=== PATIENT | female | born 1965 | race Caucasian/White ===

== ENCOUNTER → 2021-01-12 14:51 | Outpatient (CLI) | payer OTHER, MEDICAID, SELFPAY ==
--- NOTE | 2021-01-12 14:56 | DI.CT.S_ITS ---
PROCEDURE: CT ABDOMEN PELVIS WO/W CON INDICATIONS: Calculus of kidney TECHNIQUE: Optional 5 mm thick noncontrast images acquired from the diaphragm to the symphysis pubis. After the administration of intravenous contrast, 5 mm thick images acquired from the diaphragm to the symphysis pubis after a 10-minute delay. 2 mm thick coronal and sagittal reformats were then performed of the kidneys and ureters. For radiation dose reduction, the following was used: automated exposure control, adjustment of mA and/or kV according to patient size. COMPARISON: [facility], CT, CT KUB, 11/29/2020, 18:18. FINDINGS: Image quality: Excellent. Lung bases: Lung bases are clear. Heart size is normal. Urinary system: Both kidneys are normal in size, without hydronephrosis. There is a nonobstructing right inferior pole renal calculus measuring 5 mm, as before. There is an adjacent punctate 1 mm calculus within the inferior pole right kidney. There is a 2 mm diameter calculus within the right interpolar/inferior pole kidney. No left nephrolithiasis. No perinephric fat stranding. Small bilateral renal cysts are present. There is otherwise normal bilateral renal enhancement. Renal calyces appear normal in morphology when filled with contrast. Opacified portions of both ureters demonstrate normal caliber. Bladder wall thickness is normal. No calcified bladder stones. Other solid organs: Liver is normal in size and enhancement. Gallbladder is surgically absent . Biliary system is non dilated. Pancreas enhances normally. Spleen is normal in size and enhancement. No adrenal nodules. Peritoneum and bowel: Moderate hiatal hernia. Bowel loops demonstrate normal wall thickness and caliber. No free fluid or air. Diverticulosis of the descending and sigmoid colon. Nodes and vessels: No retroperitoneal or mesenteric adenopathy by size criteria. Aorta and inferior vena cava are normal in size. Circumaortic left renal vein. Phlebolith adjacent to the right mid ureter, as before. Abdominal wall: No ventral hernias. Pelvis: No pathologic free pelvic fluid. No inguinal hernias or adenopathy. Bones: No suspicious bony lesions. No vertebral body compression fractures. IMPRESSION: 1. Nonobstructing right renal calculi. 2. No evidence of renal neoplasm. 3. Colonic diverticulosis with no evidence of acute diverticulitis. 4. Hiatal hernia. Dictated by: Meliza Austin M.D. on 01/12/2021 at 16:55 Approved by: Meliza Austin M.D. on 01/12/2021 at 16:58
== END ==
PROVIDERS: PCP Family Medicine; Referring Provider Urology; Visit Provider Urology
DX: N20.0 Calculus of kidney (principal); K57.30 Diverticulosis of large intestine without perforation or abscess without bleeding; K44.9 Diaphragmatic hernia without obstruction or gangrene; M54.5 Low back pain; G89.29 Other chronic pain
CPT/HCPCS: 74178; Q9967

== ENCOUNTER 2021-03-01 17:22 | Emergency (ER) | payer OTHER, MEDICAID, SELFPAY ==
[2021-03-01 17:28] VITALS: BP 118/75; PULSE 73; RESP 18; TEMP 37.1; O2SAT 99
--- NOTE | 2021-03-01 18:39 | ED.URI ---
HPI - URI/Sore Throat General Chief Complaint: Fever Stated Complaint: states is really sick Time Seen by Provider: 03/01/21 17:23 Source: patient Mode of arrival: Ambulatory History of Present Illness HPI Narrative: Patient is a 55-year-old female who presents with 3 days of nasal congestion cough and facial pain, no fever. She does have some cough but no shortness of breath or chest pain. She received her 2nd dose of the vaccine last week the day after she developed these symptoms that have persisted. Worried that it might be COVID. She has been taking lbzk-mep-manpurk medication she said it was helping 1st event no longer helping now. MD Complaint: nasal congestion Review of Systems Review of Systems ROS Unobtainable: All systems reviewed & are unremarkable except as noted in HPI and below Constitutional Constitutional: Denies fatigue, Denies fever(s) and Reports malaise Eyes Eyes: Denies change in vision, Denies eye discharge, Denies irritation and Denies loss of vision ENT Ears, Nose, Mouth, and Throat: Reports as per HPI and Denies vertigo Cardiovascular Cardiovascular: Denies chest pain, Denies irregular heart rhythm, Denies lightheadedness, Denies palpitations, Denies dyspnea, Denies dyspnea on exertion and Denies orthopnea Respiratory Respiratory: Denies cough, Denies dyspnea, Denies dyspnea on exertion and Denies wheezing Gastrointestinal Gastrointestinal: Denies abdominal pain, Denies change in bowel habits, Denies diarrhea, Denies nausea and Denies vomiting Musculoskeletal Musculoskeletal: Denies back pain and Denies myalgias Integumentary/Breasts Skin/Breast: Denies pruritus, Denies erythema, Denies rash and Denies wounds Neurologic Neurologic: Denies confusion, Denies vertigo and Denies loss of vision Psychiatric Psychiatric: Denies confusion Endocrine Endocrine: Denies fatigue and Denies palpitations Allergic/Immunologic Allergic/Immunologic: Denies wheezing Patient History Social History Smoking Status: Current every day smoker Smoking Status: Current every day smoker Exam Initial Vital Signs Initial Vital Signs: Vital Signs Temperature 98.8 F 03/01/21 17:28 Pulse Rate 73 03/01/21 17:28 Respiratory Rate 18 03/01/21 17:28 Blood Pressure 118/75 03/01/21 17:28 Pulse Oximetry 99 03/01/21 17:28 GENERAL: Well-appearing, well-nourished and in no acute distress. HEENT: Head atraumatic,EOMI, pupils reactive, face symmetric, moist mucous membranes, facial tenderness over maxillary sinuses EARS: Tympanic membranes visualized, no erythema or bulging, no hemotympanum PHARYNX: No erythema, no tonsillar exudate, no cervical lymphadenopathy CARDIOVASCULAR: Regular rate and rhythm without murmurs, rubs or gallops. RESPIRATORY: Breath sounds equal bilaterally, no wheezes rales or rhonchi. NEUROLOGICAL: Alert and oriented x4.Normal gait and speech. Cranial nerves II through XII grossly intact. SKIN: Warm, dry, no laceration, no petechiae, no rashes or lesions. Course Orders Ordered: ED Orders 03/01/21 18:40 COVID19 -Nasal swab/Pre-Proc Stat Vital Signs Vital signs: Vital Signs - 8 hr 03/01/21 18:59 Pulse Rate 70 Blood Pressure 102/72 Pulse Oximetry 99 MDM - URI/Sore Throat Lab Data Labs: Lab Results 03/01/21 Range/Units 18:40 SARS-CoV-2 (PCR) Negative (Negative) MDM Narrative Medical decision making narrative: Patient overall does not appear septic she appears to have upper respiratory infection probable sinusitis with the significant amount of pressure. However it has only been going on 3 days and is a afebrile at this time does not meet criteria for antibiotics. I have discussed this with her and she understands. #331 & 332: Antibiotic use with Sinusitis *if the second, third, or fourth prompt is selected, only then should the clinician see the sub-prompts addressing amoxicillin X The patient has sinusitis and antibiotics are not indicated/not prescribed at this time. [SATISFIES MIPS PERFORMANCE] [] The patient has sinusitis with symptom onset greater than 10 days ago and the patient was prescribed antibiotics. [SATISFIES MIPS PERFORMANCE] Discharge Plan Departure Patient Disposition: Home Clinical Impression: Upper respiratory infection Qualifiers: URI type: unspecified viral URI Qualified Code(s): J06.9 - Acute upper respiratory infection, unspecified Instructions: DI for Viral Upper Respiratory Infection -- Adult Activity Restrictions/Additional Instructions: *You have been diagnosed with sinus infection *What to do: At this time no antibiotics are indicated however if you have a fever more than 100.4 or symptoms are persisting more than 10 days he will likely require antibiotics. *Continue to take medications as directed Ibuprofen 600 mg every 6 hours if needed for ugeq-le-bjhlrqrl pain Tylenol 650 mg every 4-6 hours if needed for noui-xq-eibhrnwk pain do not exceed more than 4 g in 24 hours *Follow up with your primary care provider in 2-3 days *Return to ER if you should have increasing shortness of breath, difficulty breathing or the above symptoms or any new, worsening or concerning symptoms Referrals: Anton Yao MD [Primary Care Provider] -
[2021-03-01 18:59] VITALS: BP 102/72; PULSE 70; O2SAT 99
[2021-03-01 19:16] LABS: COVID19 -Nasal RAPID Negative (Negative)
== END 2021-03-01 19:34 | disposition home or self-care (01) ==
PROVIDERS: Emergency Provider Emergency Medicine; PCP Family Medicine
DX: J06.9 Acute upper respiratory infection, unspecified (principal); Z20.822 Contact with and (suspected) exposure to COVID-19
CPT/HCPCS: 87635; 99281; 99282; C9803

== ENCOUNTER 2021-08-01 11:56 | Emergency (ER) | payer OTHER, MEDICAID, SELFPAY ==
[2021-08-01 12:12] VITALS: BP 130/67; PULSE 95; RESP 16; TEMP 37.2; O2SAT 95; BMI 20.1
--- NOTE | 2021-08-01 12:16 | DI.RAD.S_ITS ---
PROCEDURE: XR CHEST 2V INDICATIONS: cough TECHNIQUE: 2 views of the chest were acquired. COMPARISON: [facility], CT, CT ABDOMEN PELVIS WO/W CON, 01/12/2021, 15:40. [facility], CT, CT KUB, 11/29/2020, 18:18. FINDINGS: Surgical changes and devices: Cervical spine fixation hardware is seen. Right breast clips are seen. Cholecystectomy clips are seen. Laparoscopic anchors can be seen involving the anterior abdominal wall on the lateral view. Lungs and pleura: Lungs are clear. No pleural effusions or pneumothorax. The lungs are hyperexpanded, with flattening of the hemidiaphragms seen. Mediastinum: The cardiac contours are within normal limits. The aorta demonstrates calcification and tortuosity. Bones and chest wall: No suspicious bony abnormalities. Age-appropriate bony degenerative changes are seen. Soft tissues appear unremarkable. IMPRESSION: Negative for infiltrate. Postoperative and degenerative changes are seen. Dictated by: Marquez Galvan M.D. on 08/01/2021 at 11:33 Approved by: Marquez Galvan M.D. on 08/01/2021 at 11:35
[2021-08-01 12:58] LABS: COVID19 -Nasal RAPID Negative (Negative)
--- NOTE | 2021-08-01 14:19 | ED_ITS ---
HPI - URI/Sore Throat <Mor Lynn PA-C - Last Filed: 08/01/21 14:25> General Chief Complaint: Upper Respiratory Symptoms Stated Complaint: very sick, coughing, excruciating weakness+pain Time Seen by Provider: 08/01/21 14:01 Source: patient Mode of arrival: Ambulatory Limitations: no limitations History of Present Illness HPI Narrative: 55-year-old female with past medical history sciatica, neck pain, brain mass presents to the ED with a days of cough. Patient states that her symptoms started 8 days ago with a lot of sneezing, followed by cough, body aches. Patient came into the ED today due to persistent cough and worsening of body aches today, and to be tested for COVID-19. Patient has tried several jcni-aym-hzakjzh cough medications with little relief. Patient denies fever, chills, chest pain, shortness of breath, wheezing, nausea, vomiting, abdominal pain, dysuria, lightheadedness, dizziness, syncope. Patient is vaccinated for COVID-19. Related Data Previous Rx's Medication Instructions Recorded benzonatate 100 mg capsule 100 mg PO BID-TID PRN 10 Days #30 08/01/21 (Tesclaudine Velazquez) cap Allergies Allergy/AdvReac Type Severity Reaction Status Date / Time No Known Drug Allergies Allergy Verified 08/01/21 12:12 Review of Systems <Mor Lynn PA-C - Last Filed: 08/01/21 14:25> Constitutional Constitutional: Reports body ache(s), Denies chills, Denies fatigue, Denies fever(s), Denies frequent falls, Denies lethargy and Denies weakness Eyes Eyes: Denies change in vision, Denies eye discharge, Denies irritation and Denies loss of vision ENT Ears, Nose, Mouth, and Throat: Denies change in voice, Denies dizziness, Denies neck pain, Denies sore throat and Denies throat swelling Cardiovascular Cardiovascular: Denies chest pain, Denies irregular heart rhythm, Denies lightheadedness, Denies palpitations, Denies dyspnea, Denies dyspnea on exertion and Denies orthopnea Respiratory Respiratory: Reports cough, Denies dyspnea, Denies dyspnea on exertion and D enies wheezing Gastrointestinal Gastrointestinal: Denies abdominal pain, Denies change in bowel habits, Denies diarrhea, Denies nausea and Denies vomiting Musculoskeletal Musculoskeletal: Denies neck pain and Denies numbness Integumentary/Breasts Skin/Breast: Denies pruritus, Denies erythema, Denies rash and Denies wounds Neurologic Neurologic: Denies behavioral changes, Denies confusion, Denies dizziness, Denies frequent falls, Denies loss of vision, Denies numbness and Denies weakness Psychiatric Psychiatric: Denies anxiety, Denies behavioral changes, Denies confusion, Denies depression, Denies homicidal ideation and Denies suicidal ideation Endocrine Endocrine: Denies fatigue, Denies flushing and Denies palpitations Hematologic/Lymphatic Hematologic/Lymphatic: Denies easy bruising Allergic/Immunologic Allergic/Immunologic: Denies urticaria, Denies throat swelling and Denies wheezing Patient History <Mor Lynn PA-C - Last Filed: 08/01/21 14:25> Social History Smoking Status: Current every day smoker Smoking Status: Current every day smoker alcohol intake frequency: holidays/special occasions only Substance Use Type: does not use Exam <Mor Lynn PA-C - Last Filed: 08/01/21 14:25> Initial Vital Signs Initial Vital Signs: Vital Signs Temperature 98.9 F 08/01/21 12:12 Pulse Rate 95 H 08/01/21 12:12 Respiratory Rate 16 08/01/21 12:12 Blood Pressure 130/67 08/01/21 12:12 Pulse Oximetry 95 08/01/21 12:12 Const General: cooperative HENMA Head: normocephalic and atraumatic Ears: external ears normal and TM's normal bilaterally Nose: external nose normal and No nasal discharge Face and sinus: sinuses nontender, face symmetric, no sinus tenderness and No dry mucous membranes Mouth: oral mucosae normal and moist mucous membranes Teeth and gingiva: dentition normal Throat: tonsils normal and uvula midline Eyes General: appearance normal, both eyes and all related structures Eyelids: eyelids normal Conjunctivae: conjunctivae normal Sclera: sclerae normal Pupils: PERRL EOM: EOM intact bilaterally Neck Neck: normal visual inspection, trachea midline, No lymphadenopathy, No midline deformity and No JVD Lymphatic: No lymphedema Chest Chest: normal inspection of the chest Resp Effort & Inspection: normal respiratory effort, able to speak in complete sentences, cough, no respiratory distress and no use of accessory muscles Auscultation: clear to auscultation bilaterally, no rales, no rhonchi and no wheezes Cardio Rate: regular rate Rhythm: regular rhythm Heart Sounds: no click, no gallops, no murmurs and no rubs Pulses: normal peripheral pulses GI Inspection: non-distended Palpation: soft, no hepatosplenomegaly, No guarding, No pulsatile mass and No tender Auscultation: normal bowel sounds Back/Spine/Pelvis Back: No CVA tenderness Cervical Spine: cervical ROM normal and No pain with cervical ROM Thoracic/Lumbar Spine: thoracic and lumbar spine normal to inspection Skin General: no rashes or lesions noted, No jaundice and No petechiae Neuro General: patient alert, patient oriented x3, gait normal and no focal motor deficits Speech: speech normal Extrem General: full ROM, no clubbing, cyanosis or edema, no pedal edema and no calf tenderness Psych Appearance: well kempt Mental Status: mental status grossly normal Attitude: cooperative Thought Content: normal and suicidality Judgment: judgment good <Tani Parham DO - Last Filed: 08/02/21 06:58> Initial Vital Signs Initial Vital Signs: Vital Signs Temperature 98.9 F 08/01/21 12:12 Pulse Rate 95 H 08/01/21 12:12 Respiratory Rate 16 08/01/21 12:12 Blood Pressure 130/67 08/01/21 12:12 Pulse Oximetry 95 08/01/21 12:12 Course <Mor Lynn PA-C - Last Filed: 08/01/21 14:25> Orders Ordered: Discontinued Medications Benzonatate (Benzonatate 100 Mg Capsule) 100 mg PO NOW ONE Stop: 08/01/21 14:15 Last Admin: 08/01/21 14:21 Dose: 100 mg Documented by: VENESSA Ketorolac Tromethamine (Ketorolac 30 Mg/Ml Vial) 15 mg IM NOW ONE Stop: 08/01/21 14:15 Last Admin: 08/01/21 14:21 Dose: 15 mg Documented by: VENESSA Vital Signs Vital signs: Vital Signs - 8 hr 08/01/21 12:12 Temperature 98.9 F Pulse Rate 95 H Respiratory Rate 16 Blood Pressure 130/67 Pulse Oximetry 95 <Tani Parham DO - Last Filed: 08/02/21 06:58> Orders Ordered: Discontinued Medications Benzonatate (Benzonatate 100 Mg Capsule) 100 mg PO NOW ONE Stop: 08/01/21 14:15 Last Admin: 08/01/21 14:21 Dose: 100 mg Documented by: VENESSA Ketorolac Tromethamine (Ketorolac 30 Mg/Ml Vial) 15 mg IM NOW ONE Stop: 08/01/21 14:15 Last Admin: 08/01/21 14:21 Dose: 15 mg Documented by: VENESSA Vital Signs Vital signs: Vital Signs - 8 hr 08/01/21 12:12 Temperature 98.9 F Pulse Rate 95 H Respiratory Rate 16 Blood Pressure 130/67 Pulse Oximetry 95 MDM - URI/Sore Throat <Mor Lynn PA-C - Last Filed: 08/01/21 14:25> Medical Records Attestation: I reviewed the patient's medical records. Lab Data Attestation: I reviewed the patient's lab results. Lab results narrative: COVID-19 negative Labs: Lab Results 08/01/21 Range/Units 12:14 SARS-CoV-2 (PCR) Negative (Negative) Imaging Data Chest x-ray: Radiologist's Impression: PROCEDURE:? XR CHEST 2V ? INDICATIONS:? cough ? TECHNIQUE:? 2 views of the chest were acquired.? ? COMPARISON:? [facility], CT, CT ABDOMEN PELVIS WO/W CON, 01/12/2021, 15:40.? [facility], CT, CT KUB, 11/29/2020, 18:18. ? FINDINGS:? ? Surgical changes and devices:? Cervical spine fixation hardware is seen.? Right breast clips are seen. Cholecystectomy clips are seen.? Laparoscopic anchors can be seen involving the anterior abdominal wall on the lateral view. ? Lungs and pleura:? Lungs are clear.? No pleural effusions or pneumothorax.? The lungs are hyperexpanded, with flattening of the hemidiaphragms seen. ? Mediastinum:? The cardiac contours are within normal limits. The aorta demonstrates calcification and tortuosity. ? Bones and chest wall:? No suspicious bony abnormalities.? Age-appropriate bony degenerative changes are seen. ? Soft tissues appear unremarkable.? ? ? IMPRESSION:? Negative for infiltrate. ? Postoperative and degenerative changes are seen.? ? ? Dictated by: Marquez Galvan M.D. on 08/01/2021 at 11:33 ? ? MDM Narrative Medical decision making narrative: 55-year-old female with past medical history sciatica, neck pain, brain mass presents to the ED with a days of cough. Concern for URI versus bronchitis. Chest x-ray with no acute findings, COVID 19 test negative. Will discharge home with prescription for Tessalon Perles. Will give a dose of Tessalon Perles, Toradol in the ED. will discuss ED return precautions. <Tani Parham DO - Last Filed: 08/02/21 06:58> Lab Data Labs: Lab Results 08/01/21 Range/Units 12:14 SARS-CoV-2 (PCR) Negative (Negative) Discharge Plan Departure Patient Disposition: Home Clinical Impression: Upper respiratory infection Qualifiers: URI type: unspecified URI Qualified Code(s): J06.9 - Acute upper respiratory infection, unspecified Instructions: DI for Viral Upper Respiratory Infection -- Adult Activity Restrictions/Additional Instructions: You were evaluated today for a cough and body aches. Your chest x-ray was normal annual COVID test was negative. You likely have bronchitis secondary to a viral upper respiratory infection. May take Tessalon Perles for the cough, and ibuprofen or Tylenol for the body aches. Prescriptions: New benzonatate [Tessalon Perles] 100 mg capsule 100 mg PO BID-TID PRN (Reason: cough) 10 Days Qty: 30 RF: 0 Referrals: Anton Yao MD [Primary Care Provider] -
[2021-08-01] MEDS: KETOROLAC 30 MG/ML VIAL 15 MG IM (14:21)
[2021-08-01] MEDS: BENZONATATE 100 MG CAPSULE PO (14:21)
[2021-08-01 14:38] VITALS: BP 119/69; PULSE 84; RESP 16; O2SAT 96
== END 2021-08-01 14:38 | disposition home or self-care (01) ==
PROVIDERS: Emergency Medicine; Emergency Provider Student in an Organized Health Care Education/Training Program; PCP Family Medicine
DX: J06.9 Acute upper respiratory infection, unspecified (principal); Z20.822 Contact with and (suspected) exposure to COVID-19
CPT/HCPCS: 71046; 87635; 96372; 99283; C9803; J1885

== ENCOUNTER 2023-05-19 17:03 | Emergency (ER) | payer OTHER, MEDICAID, SELFPAY ==
[2023-05-19] VITALS (30 sets, daily range): BP systolic 97–118; BP diastolic 59–77; PULSE 75–93; RESP 18–27; TEMP 36.4; O2SAT 91–97; BMI 20.9
--- NOTE | 2023-05-19 17:28 | DI.RAD.S_ITS ---
PROCEDURE: XR CHEST 1V INDICATIONS: chest pain TECHNIQUE: One view of the chest was acquired. COMPARISON: [facility], , XR CHEST 2V, 08/01/2021, 12:18. FINDINGS: Surgical changes and devices: Partially imaged surgical hardware from prior ACDF. Surgical clips project over the right lower chest. Lungs and pleura: Lungs are clear. No pleural effusions or pneumothorax. Mediastinum: Mediastinal contours appear normal. Heart size is normal. Bones and chest wall: No suspicious bony lesions. Overlying soft tissues appear unremarkable. IMPRESSION: No acute cardiopulmonary abnormalities or focal airspace disease. Dictated by: Koby Scott M.D. on 05/19/2023 at 16:55 Approved by: Koby Scott M.D. on 05/19/2023 at 16:56
[2023-05-19 18:04] LABS: Add Manual Diff / Slide Review NO; Basophils Absolute Auto 100 /uL (0-100); Basophils Percent Auto 0.9 % (0-2); Eosinophils Absolute Auto 100 /uL (0-450); Eosinophils Percent Auto 1.4 % (2-4); Hematocrit 34.6 % (36-46); Hemoglobin 12.1 g/dL (12.0-16.0); Lymphocytes Absolute Auto 1600 /uL (1100-4500); Lymphocytes Percent Auto 23.3 % (25-40); Mean Corpuscular Hemoglobin 32.5 PG (26-34); Mean Corpuscular Volume 92.7 fL (80-100); Monocytes Absolute Auto 400 /uL (0-900); Monocytes Percent Auto 6.2 % (3-14); Neutrophils Absolute Auto 4700 /uL (1500-7000); Neutrophils Percent Auto 68.2 % (50-75); Platelet Count 222 X10^3/uL (150-400); Red Blood Cell Count 3.74 X10^6/uL (4.0-5.2); Red Cell Distribution Width 13.8 % (11.6-14.8); White Blood Cell Count 6.9 X10^3/uL (4.5-11.0)
[2023-05-19 18:16] LABS: Prothrombin Time 11.4 SECONDS (10.1-12.7)
[2023-05-19 18:19] LABS: PTT Partial Thromboplastin Tim 30 SECONDS (26-36)
--- NOTE | 2023-05-19 18:20 | ED_ITS ---
HPI - General Adult General Chief complaint: Weakness Stated complaint: Cough Time Seen by Provider: 05/19/23 18:16 Source: patient Mode of arrival: Ambulatory History of Present Illness HPI narrative: 57-year-old woman complaining of being ?sick? for a number of weeks in the last 2 days has gotten significantly worse. She notes increasing cough, she does continue to smoke. Reports weakness, falls, unable to sleep due to a turning type sensation throughout her whole body that bothers her all night long. This sensation does not seem to be present during the day so she is able to get small naps during the day but does complain of significant sleep deprivation.. Also note intermittent diarrhea over the last number of weeks. She is concerned that she may have Clostridium difficile and has been started on antibiotics (she isn't sure which ones) by her primary care doctor and took the 1st dose is today. She has not yet left a stool sample for diagnostic purposes. She complains that she has restless legs and when getting up to walk to the bathroom feels that her legs are going to give out on her. Related Data Previous Rx's Medication Instructions Recorded prednisone 20 mg tablet 40 mg PO DAILY #10 tabs 05/20/23 Allergies Allergy/AdvReac Type Severity Reaction Status Date / Time No Known Drug Allergies Allergy Verified 05/19/23 17:22 Review of Systems Review of Systems Narrative: Pertinent positive and negative findings as per HPI Patient History Social History Smoking Status: Current every day smoker Smoking Status: Current every day smoker alcohol intake frequency: holidays/special occasions only Substance Use Type: does not use Exam Initial Vital Signs Initial Vital Signs: Vital Signs Temperature 97.6 F 05/19/23 17:22 Pulse Rate 89 05/19/23 17:22 Respiratory Rate 19 05/19/23 17:22 Blood Pressure 102/64 05/19/23 17:22 Pulse Oximetry 97 05/19/23 17:22 Oxygen Delivery Method Room Air 05/19/23 17:22 General: Chronically ill-appearing, significant sleep deprivation HEENT: Moist mucous membranes, normal sclera with reactive pupils, Neck: No JVD, supple Respiratory: Lungs with wheeze in all lung rodriguez worse in the upper lobes no rhonchi appreciated Cardiac: Regular rate and rhythm no murmurs no bruits Abdomen: Soft, nontender, good bowel tones, no flank pain Skin: Warm and dry, no rashes Neurologic: Globally weak, Grossly neurologically intact with no obvious asymmetries or abnormalities Extremities: No trauma, well perfused Psych: Cooperative, appropriate insight and affect Course Orders Ordered: ED Orders 05/19/23 17:28 XR chest 1V Stat EKG-12 Lead Stat 05/19/23 17:30 Covid-19 + FLU A/B + RSV - PCR Stat 05/19/23 17:50 BNP [NT-proBNP (BNP-Adult 18+)] Stat Complete Blood Count AUTO DIFF Stat Comprehensive Metabolic Panel Stat Lipase Stat Magnesium Stat PTT Partial Thromboplastin James Stat Prothrombin Time INR Stat Troponin & CK Cardiac Panel Stat 05/19/23 19:19 Respiratory Panel (Film Array) Stat UA Complete [Urinalysis and Microscopic] Stat Discontinued Medications Albuterol/Ipratropium (Albuterol/Ipratropium 3 Ml Ampul) 3 ml INH NOW ONE Stop: 05/19/23 23:33 Last Admin: 05/19/23 23:36 Dose: 3 ml Documented By: ROB Methylprednisolone (Methylprednisolone 125 Mg/2 Ml Vial) 125 mg IV NOW ONE Stop: 05/19/23 23:33 Last Admin: 05/19/23 23:39 Dose: 125 mg Documented By: Vital Signs Vital signs: Vital Signs - 8 hr 05/19/23 17:22 05/19/23 17:32 05/19/23 17:34 Temperature 97.6 F Pulse Rate 89 93 H 92 H Respiratory Rate 19 Blood Pressure 102/64 Pulse Oximetry 97 97 97 Oxygen Delivery Method Room Air Oxygen Flow Rate Fraction of Inspired Oxygen 05/19/23 17:34 05/19/23 17:40 05/19/23 17:40 Temperature Pulse Rate 90 Respiratory Rate 21 Blood Pressure 118/66 113/69 Pulse Oximetry 96 Oxygen Delivery Method Oxygen Flow Rate Fraction of Inspired Oxygen 05/19/23 17:53 05/19/23 17:53 05/19/23 18:00 Temperature Pulse Rate 82 92 H Respiratory Rate 26 H Blood Pressure 100/59 L Pulse Oximetry 96 96 Oxygen Delivery Method Oxygen Flow Rate Fraction of Inspired Oxygen 05/19/23 18:02 05/19/23 18:02 05/19/23 18:10 Temperature Pulse Rate 83 88 Respiratory Rate 22 Blood Pressure 107/70 Pulse Oximetry 96 97 Oxygen Delivery Method Oxygen Flow Rate Fraction of Inspired Oxygen 05/19/23 18:10 05/19/23 18:20 05/19/23 18:20 Temperature Pulse Rate 83 Respiratory Rate 27 H Blood Pressure 117/59 L 116/67 Pulse Oximetry 95 Oxygen Delivery Method Oxygen Flow Rate Fraction of Inspired Oxygen 05/19/23 18:35 05/19/23 19:00 05/19/23 19:30 Temperature Pulse Rate 80 77 80 Respiratory Rate 19 20 Blood Pressure Pulse Oximetry 91 Oxygen Delivery Method Oxygen Flow Rate Fraction of Inspired Oxygen 05/19/23 20:00 05/19/23 20:30 05/19/23 23:36 Temperature Pulse Rate 79 78 77 Respiratory Rate 21 21 18 Blood Pressure Pulse Oximetry 91 96 95 Oxygen Delivery Method Room Air Oxygen Flow Rate 0 Fraction of Inspired Oxygen 21 Medical Decision Making Lab Data 05/19/23 17:50 05/19/23 17:50 Labs: Lab Results 05/19/23 05/19/23 05/19/23 Range/Units 17:30 17:50 17:50 WBC 6.9 (4.5-11.0) X10^3/uL RBC 3.74 L (4.0-5.2) X10^6/uL Hgb 12.1 (12.0-16.0) g/dL Hct 34.6 L (36-46) % MCV 92.7 (80-100) fL MCH 32.5 (26-34) PG MCHC 35.0 (30-36) % RDW 13.8 (11.6-14.8) % Plt Count 222 (150-400) X10^3/uL Neut % (Auto) 68.2 (50-75) % Lymph % (Auto) 23.3 L (25-40) % [place] % (Auto) 6.2 (3-14) % Eos % (Auto) 1.4 L (2-4) % Baso % (Auto) 0.9 (0-2) % Neut # (Auto) 4700 (2667-3042) /uL Lymph # (Auto) 1600 (2108-6874) /uL [place] # (Auto) 400 (0-900) /uL Eos # (Auto) 100 (0-450) /uL Baso # (Auto) 100 (0-100) /uL PT 11.4 (10.1-12.7) SECONDS INR 1.0 (0.9-1.3) APTT 30 (26-36) SECONDS Sodium (137-145) mmol/L Potassium (3.4-5.1) mmol/L Chloride (98-107) mmol/L Carbon Dioxide (22-32) mmol/L BUN (7-17) mg/dL Creatinine (0.52-1.04) mg/dL Estimated GFR (>60) mL/min BUN/Creatinine Ratio (6-22) Glucose (70-100) mg/dL Calcium (8.4-10.2) mg/dL Magnesium (1.6-2.3) mg/dL Total Bilirubin (0.2-1.3) mg/dL AST (14-36) IU/L ALT (<35) IU/L Alkaline Phosphatase (38-126) U/L Total Creatine Kinase (30-135) U/L Troponin I (0.01-0.034) ng/mL NT-Pro-B Natriuret Pep (<125) pg/mL Total Protein (6.3-8.2) g/dL Albumin (3.5-5.0) g/dL Globulin (1.7-4.1) g/dL Albumin/Globulin Ratio (1.0-2.8) Lipase (23-300) U/L Urine Color Urine Appearance Urine pH (4.5-8.0) Ur Specific [place] (1.000-1.035) Urine Protein (Negative) Urine Glucose (UA) (Negative) g/dL Urine Ketones (NEGATIVE) Urine Occult Blood (Negative) Urine Nitrate (Negative) Urine Bilirubin (NEGATIVE) Urine Urobilinogen (0.2) E.U./dL Ur Leukocyte Esterase (NEGATIVE) Urine RBC (0-5/HPF) Urine WBC (0-5/HPF) Ur Squamous Epith Cells (0-5/HPF) Urine Bacteria (None) Ur Culture Indicated? Chlamy pneumoniae PCR (Not Detect) Adenovirus (PCR) (Not Detect) B. pertussis DNA (PCR) (Not Detecte) B.parapertussis DNA PCR (Not Detecte) Coronavirus OC43 (PCR) (Not Detect) Coronavirus HKU1 (PCR) (Not Detect) Coronavirus 229E (PCR) (Not Detect) SARS-CoV-2 (PCR) Negative (Negative) Coronavirus NL63 (PCR) (Not Detect) Human Metapneumovir PCR (Not Detect) Influenza A (RT-PCR) Flu a negative (NEGATIVE) Influenza Type A (PCR) (Not Detect) Influenza B (RT-PCR) Flu b negative (NEGATIVE) Influenza Type B (PCR) (Not Detect) M. pneumoniae (PCR) (Not Detect) Parainfluenza 1 (PCR) (Not Detect) Parainfluenza 2 (PCR) (Not Detect) Parainfluenza 3 (PCR) (Not Detect) Parainfluenza 4 (PCR) (Not Detect) RSV (PCR) Negative (Negative) Entero/Rhino (PCR) (Not Detect) 05/19/23 05/19/23 05/19/23 Range/Units 17:50 17:50 19:19 WBC (4.5-11.0) X10^3/uL RBC (4.0-5.2) X10^6/uL Hgb (12.0-16.0) g/dL Hct (36-46) % MCV (80-100) fL MCH (26-34) PG MCHC (30-36) % RDW (11.6-14.8) % Plt Count (150-400) X10^3/uL Neut % (Auto) (50-75) % Lymph % (Auto) (25-40) % [place] % (Auto) (3-14) % Eos % (Auto) (2-4) % Baso % (Auto) (0-2) % Neut # (Auto) (6878-0864) /uL Lymph # (Auto) (2257-6008) /uL [place] # (Auto) (0-900) /uL Eos # (Auto) (0-450) /uL Baso # (Auto) (0-100) /uL PT (10.1-12.7) SECONDS INR (0.9-1.3) APTT (26-36) SECONDS Sodium 131 L (137-145) mmol/L Potassium 3.4 (3.4-5.1) mmol/L Chloride 97 L (98-107) mmol/L Carbon Dioxide 27 (22-32) mmol/L BUN 3 L (7-17) mg/dL Creatinine 0.56 (0.52-1.04) mg/dL Estimated GFR > 60 (>60) mL/min BUN/Creatinine Ratio 5.4 L (6-22) Glucose 137 H (70-100) mg/dL Calcium 8.5 (8.4-10.2) mg/dL Magnesium 1.7 (1.6-2.3) mg/dL Total Bilirubin 0.4 (0.2-1.3) mg/dL AST 23 (14-36) IU/L ALT 23 (<35) IU/L Alkaline Phosphatase 72 (38-126) U/L Total Creatine Kinase 110 (30-135) U/L Troponin I < 0.012 (0.01-0.034) ng/mL NT-Pro-B Natriuret Pep 59 (<125) pg/mL Total Protein 6.7 (6.3-8.2) g/dL Albumin 4.0 (3.5-5.0) g/dL Globulin 2.7 (1.7-4.1) g/dL Albumin/Globulin Ratio 1.5 (1.0-2.8) Lipase 157 (23-300) U/L Urine Color Urine Appearance Urine pH (4.5-8.0) Ur Specific [place] (1.000-1.035) Urine Protein (Negative) Urine Glucose (UA) (Negative) g/dL Urine Ketones (NEGATIVE) Urine Occult Blood (Negative) Urine Nitrate (Negative) Urine Bilirubin (NEGATIVE) Urine Urobilinogen (0.2) E.U./dL Ur Leukocyte Esterase (NEGATIVE) Urine RBC (0-5/HPF) Urine WBC (0-5/HPF) Ur Squamous Epith Cells (0-5/HPF) Urine Bacteria (None) Ur Culture Indicated? Chlamy pneumoniae PCR Not detected (Not Detect) Adenovirus (PCR) Not detected (Not Detect) B. pertussis DNA (PCR) Not detected (Not Detecte) B.parapertussis DNA PCR Not detected (Not Detecte) Coronavirus OC43 (PCR) Not detected (Not Detect) Coronavirus HKU1 (PCR) Not detected (Not Detect) Coronavirus 229E (PCR) Not detected (Not Detect) SARS-CoV-2 (PCR) Not detected (Negative) Coronavirus NL63 (PCR) Not detected (Not Detect) Human Metapneumovir PCR Not detected (Not Detect) Influenza A (RT-PCR) (NEGATIVE) Influenza Type A (PCR) Not detected (Not Detect) Influenza B (RT-PCR) (NEGATIVE) Influenza Type B (PCR) Not detected (Not Detect) M. pneumoniae (PCR) Not detected (Not Detect) Parainfluenza 1 (PCR) Not detected (Not Detect) Parainfluenza 2 (PCR) Detected H (Not Detect) Parainfluenza 3 (PCR) Not detected (Not Detect) Parainfluenza 4 (PCR) Not detected (Not Detect) RSV (PCR) Not detected (Negative) Entero/Rhino (PCR) Not detected (Not Detect) 05/19/23 Range/Units 19:19 WBC (4.5-11.0) X10^3/uL RBC (4.0-5.2) X10^6/uL Hgb (12.0-16.0) g/dL Hct (36-46) % MCV (80-100) fL MCH (26-34) PG MCHC (30-36) % RDW (11.6-14.8) % Plt Count (150-400) X10^3/uL Neut % (Auto) (50-75) % Lymph % (Auto) (25-40) % [place] % (Auto) (3-14) % Eos % (Auto) (2-4) % Baso % (Auto) (0-2) % Neut # (Auto) (1501-8523) /uL Lymph # (Auto) (7919-9217) /uL [place] # (Auto) (0-900) /uL Eos # (Auto) (0-450) /uL Baso # (Auto) (0-100) /uL PT (10.1-12.7) SECONDS INR (0.9-1.3) APTT (26-36) SECONDS Sodium (137-145) mmol/L Potassium (3.4-5.1) mmol/L Chloride (98-107) mmol/L Carbon Dioxide (22-32) mmol/L BUN (7-17) mg/dL Creatinine (0.52-1.04) mg/dL Estimated GFR (>60) mL/min BUN/Creatinine Ratio (6-22) Glucose (70-100) mg/dL Calcium (8.4-10.2) mg/dL Magnesium (1.6-2.3) mg/dL Total Bilirubin (0.2-1.3) mg/dL AST (14-36) IU/L ALT (<35) IU/L Alkaline Phosphatase (38-126) U/L Total Creatine Kinase (30-135) U/L Troponin I (0.01-0.034) ng/mL NT-Pro-B Natriuret Pep (<125) pg/mL Total Protein (6.3-8.2) g/dL Albumin (3.5-5.0) g/dL Globulin (1.7-4.1) g/dL Albumin/Globulin Ratio (1.0-2.8) Lipase (23-300) U/L Urine Color Yellow Urine Appearance Clear Urine pH 6.0 (4.5-8.0) Ur Specific [place] <=1.005 (1.000-1.035) Urine Protein Negative (Negative) Urine Glucose (UA) Negative (Negative) g/dL Urine Ketones Negative (NEGATIVE) Urine Occult Blood Trace-intact (Negative) Urine Nitrate Negative (Negative) Urine Bilirubin Negative (NEGATIVE) Urine Urobilinogen 0.2 (0.2) E.U./dL Ur Leukocyte Esterase Negative (NEGATIVE) Urine RBC None seen (0-5/HPF) Urine WBC None seen (0-5/HPF) Ur Squamous Epith Cells None seen (0-5/HPF) Urine Bacteria None seen (None) Ur Culture Indicated? Cult not indicated Chlamy pneumoniae PCR (Not Detect) Adenovirus (PCR) (Not Detect) B. pertussis DNA (PCR) (Not Detecte) B.parapertussis DNA PCR (Not Detecte) Coronavirus OC43 (PCR) (Not Detect) Coronavirus HKU1 (PCR) (Not Detect) Coronavirus 229E (PCR) (Not Detect) SARS-CoV-2 (PCR) (Negative) Coronavirus NL63 (PCR) (Not Detect) Human Metapneumovir PCR (Not Detect) Influenza A (RT-PCR) (NEGATIVE) Influenza Type A (PCR) (Not Detect) Influenza B (RT-PCR) (NEGATIVE) Influenza Type B (PCR) (Not Detect) M. pneumoniae (PCR) (Not Detect) Parainfluenza 1 (PCR) (Not Detect) Parainfluenza 2 (PCR) (Not Detect) Parainfluenza 3 (PCR) (Not Detect) Parainfluenza 4 (PCR) (Not Detect) RSV (PCR) (Negative) Entero/Rhino (PCR) (Not Detect) Urine Dip Bedside Urine Glucose Negative Bedside Urine Bilirubin - Negative Bedside Urine Ketone - Negative Urine Specific [place] 1.01 Bedside Urine Occult Blood + Bedside Urine pH 6.0 Bedside Urine Protein - Negative Bedside Urine Urobilinogen - Negative Bedside Urine Nitrite - Negative Bedside Urine Leukocytes - Negative Esterase Point of care testing: Urine Dip Bedside Urine Glucose Negative Bedside Urine Bilirubin - Negative Bedside Urine Ketone - Negative Urine Specific [place] 1.01 Bedside Urine Occult Blood + Bedside Urine pH 6.0 Bedside Urine Protein - Negative Bedside Urine Urobilinogen - Negative Bedside Urine Nitrite - Negative Bedside Urine Leukocytes - Negative Esterase MDM Narrative Medical decision making narrative: CC: Cough and weakness, acute issue uncertain prognosis Complicating co-morbidities: Continued tobacco use, significant sleep deprivation Data collected from: patient, Medical records reviewed: Prior ER notes are noted. Differential considered: Severe sleep deprivation, viral syndrome, bacterial pneumonia, COPD exacerbation, congestive heart failure Exam documented above, pertinent findings include: Dramatic fatigue, wheezing in upper lung rodriguez no rhonchi Lab Test results independently reviewed as above. Pertinent findings: CBC is unremarkable Chemistries are minimally abnormal Troponin is unremarkable Urine shows no evidence of infection Respiratory panel demonstrates parainfluenza 2 Independently reviewed EKG sinus rhythm at a rate of 90. Normal intervals, normal axis. Nonspecific ST T wave changes anteriorly. No acute ischemia Imaging studies independently reviewed: No acute cardiopulmonary abnormality and no focal airspace disease Consultations: Treatments: DuoNeb, IV steroids Re-evaluations: 1230am lungs are slightly better after the Solu-Medrol and DuoNeb. She is not coughing quite as much. She notes that her restless legs are tremendously troublesome and she is standing at the bedside to help alleviate those symptoms currently. Discussion: 57-year-old woman testing positive for parainfluenza to with viral symptoms appreciated. She also has a long history of smoking likely does have COPD and has quite a bit of wheezing associated with a parainfluenza. We also spent time discussing her restless leg symptoms in the past she is had success with very small doses of carbidopa levodopa. She has tried multiple medications in the seem to be the most helpful. I am wondering if restless leg type symptoms are part of what is causing the rolling symptoms in her abdomen that are causing such severe sleep deprivation. At this time there is no evidence of acute respiratory distress, pneumonia, sepsis, acute coronary syndrome, congestive heart failure. She is safe for discharge home. Additional Information: Apprpriate Treatment for Patients with URI [x] The patient was diagnosed with upper respiratory infection and was not prescribed or dispensed an antibiotic. [SATISFIES MIPS PERFORMANCE] Discharge Plan Departure Patient Disposition: Home Clinical Impression: Parainfluenza infection, Tobacco use, Restless leg syndrome, Sleep deprivation Instructions: DI for Chronic Obstructive Pulmonary Disease, DI for Viral Upper Respiratory Infection -- Adult Activity Restrictions/Additional Instructions: Thank you for coming in today You do have parainfluenza. This is a virus and will take 7-10 days to improve, keeping well hydrated and using ibuprofen and Tylenol to help with myalgias and body aches is recommended. With your smoking history and listening to your lungs I suspect that there is a component of COPD. With a viral infection you are having quite a bit of wheezing and did seem to respond nicely to the nebulized treatment we gave you in the emergency department. I gave you IV steroids in the emergency department as well. I am sending you home with an albuterol inhaler with a spacer. Please use 2 puffs every 6 hours as needed. You may find that it is helpful if you continue to cough after you have gotten over most of the viral symptoms. I am also going to give you 5 additional days of 40 mg of prednisone For your restless legs I am going to have you restart the low dose of carbidopa levodopa. I wish you luck in getting some sleep, I suspect that if you are able to catch up on some sleep you will likely feel better than anything I am able to do for you medically. If you find that you are getting worse or develop any new symptoms, please feel free to return to the emergency department for further evaluation. Prescriptions: New prednisone 20 mg tablet 40 mg PO DAILY Qty: 10 0RF Referrals: Anton Yao MD [Primary Care Provider] - Stand Alone Forms: Patient Portal/API
[2023-05-19 18:21] LABS: Alanine Aminotransferase 23 IU/L (<35); Albumin Globulin Ratio 1.5 (1.0-2.8); Alkaline Phosphatase 72 U/L (38-126); Aspartate Aminotransferase 23 IU/L (14-36); BUN Creatinine Ratio 5.4 (6-22); Bilirubin Total 0.4 mg/dL (0.2-1.3); Blood Urea Nitrogen 3 mg/dL (7-17); Calcium 8.5 mg/dL (8.4-10.2); Carbon Dioxide 27 mmol/L (22-32); Chloride 97 mmol/L (98-107); Creatine Kinase 110 U/L (30-135); Estimated Glomerular Filt Rate > 60 mL/min (>60); Globulin 2.7 g/dL (1.7-4.1); Glucose 137 mg/dL (70-100); HEMOLYSIS < 15 (0-50); Lipase 157 U/L (23-300); Magnesium 1.7 mg/dL (1.6-2.3); Potassium 3.4 mmol/L (3.4-5.1); Sodium 131 mmol/L (137-145); Total Protein 6.7 g/dL (6.3-8.2)
[2023-05-19 18:33] LABS: Troponin I < 0.012 ng/mL (0.01-0.034)
[2023-05-19 18:53] LABS: COVID-19 CEPHEID 4-PLEX PCR Negative (Negative); Influenza A - CEPHEID Flu A NEGATIVE (NEGATIVE); Influenza B - CEPHEID Flu B NEGATIVE (NEGATIVE); Respiratory Syncytial Virus Negative (Negative)
[2023-05-19 19:08] LABS: NT-proBNP (BNP-Adult 18+) 59 pg/mL (<125)
[2023-05-19 19:41] LABS: Appearance Urine UA CLEAR; Bilirubin Urine UA NEGATIVE (NEGATIVE); Color Urine UA YELLOW; Glucose Urine UA NEGATIVE (Negative); Ketones Urine UA NEGATIVE (NEGATIVE); Leukocyte Esterase Urine UA NEGATIVE (NEGATIVE); Nitrite Urine UA NEGATIVE (Negative); Occult Blood Urine UA TRACE-INTACT (Negative); Protein Urine UA NEGATIVE (Negative); Specific Gravity Urine UA <=1.005 (1.000-1.035); Urobilinogen Urine UA 0.2 E.U./dL (0.2)
[2023-05-19 20:09] LABS: Bacteria Urine None Seen; Culture Indicated Urine Cult Not Indicated; RBC Urine None Seen (0-5/HPF); Squamous Epithelial Cell Urine None Seen (0-5/HPF); WBC Urine None Seen (0-5/HPF)
[2023-05-19 20:26] LABS: Adenovirus Not Detected (Not Detect); B. parapertussis Not Detected (Not Detecte); Bordetella pertussis Not Detected (Not Detecte); Chlamydophila pneumoniae Not Detected (Not Detect); Coronavirus 229E Not Detected (Not Detect); Coronavirus HKU1 Not Detected (Not Detect); Coronavirus NL 63 Not Detected (Not Detect); Coronavirus OC43 Not Detected (Not Detect); Human Metapneumovirus Not Detected (Not Detect); Human Rhinovirus/Enterovirus Not Detected (Not Detect); Influenza A Not Detected (Not Detect); Influenza B Not Detected (Not Detect); Mycoplasma pneumoniae Not Detected (Not Detect); Parainfluenza Virus 1 Not Detected (Not Detect); Parainfluenza Virus 2 Detected (Not Detect); Parainfluenza Virus 3 Not Detected (Not Detect); Parainfluenza Virus 4 Not Detected (Not Detect); Respiratory Syncytial Virus Not Detected (Not Detect); SARS- CoV-2 Not Detected (Not Detecte)
[2023-05-19] MEDS: ALBUTEROL/IPRATROPIUM 3 ML AMPUL INH (23:36)
[2023-05-19] MEDS: methylPREDNISolone 125 MG/2 ML VIAL IV (23:39)
--- NOTE | 2023-05-19 23:48 | RT ---
Post breathing treatment: noting improved breath sounds (improved aeration). Pt denies shortness of breath.
[2023-05-20] VITALS (7 sets, daily range): BP systolic 93–114; BP diastolic 57–69; PULSE 79–91; O2SAT 91–95
[2023-05-20] MEDS: CARBIDOPA-LEVODOPA 25/100 TABLET 1 EACH PO (00:54)
[2023-05-20] MEDS: ALBUTEROL HFA MDI 60 PUFF/8 GM INHALER INH (01:24)
== END 2023-05-20 01:25 | disposition home or self-care (01) ==
PROVIDERS: Emergency Medicine; Emergency Provider Emergency Medicine; PCP Family Medicine
DX: B34.8 Other viral infections of unspecified site (principal); G25.81 Restless legs syndrome; R07.9 Chest pain, unspecified; Z72.820 Sleep deprivation; Z72.0 Tobacco use; Z20.822 Contact with and (suspected) exposure to COVID-19
CPT/HCPCS: 0241U; 36415; 71045; 80053; 81001; 81003; 82550; 83690; 83735; 83880; 84484; 85025; 85610; 85730; 87633; 93005; 96374; 99284; A9270; J2930